=== PATIENT | male | born 1945 | race Caucasian/White ===

== ENCOUNTER 2017-03-28 18:09 | Emergency (ER) | payer OTHER, MEDICARE ==
[~2017-03-28] VITALS: Ht 180.3 cm; Wt 75.0 kg
[~2017-03-28 18:09] MED LIST: ALBUTEROL S2.5 MG/.5 IN; EQ OMEPRAZOLE20 MG PO; FINASTERIDE5 MG PO; LISINOP/HCTZ1 TAB PO; LISINOPRIL10 MG PO; MEDDOSEPAK PO; METFORMIN500 MG PO; TAMSULOSIN0.4 MG PO; TESSALON PER100 MG PO; XANAX0.25 MG PO; ZPAK PO
[2017-03-28 19:41] LABS: HEMATOCRIT 36.1 % (39.0-50.0); HEMOGLOBIN 12.3 g/dl (14.0-18.0); IMMATURE GRANULOCYTES 0.9 % (0.0-1.0); MEAN CELL VOLUME 91.6 fL CALC (80.0-100.0); MEAN CORPUSCULAR HGB 31.2 pG CALC (26.0-32.0); MEAN CORPUSCULAR HGB CONC 34.1 g/L CALC (32.0-36.0); NEUT# 9.26 thou/uL (1.82-7.42); RED BLOOD COUNT 3.94 mill/uL (4.70-6.10); RED CELL DISTRI WIDTH 13.6 % (11.5-15.5)
[2017-03-28 19:55] LABS: ALBUMIN 4.4 g/dL (3.2-5.0); ALKALINE PHOSPHATASE 124 u/l (38-126); ANION GAP 27 (6-22 (CALC)); BILIRUBIN, TOTAL 0.4 mg/dL (0.0-1.4); BUN 15 mg/dL (8-23); BUN/CREATININE RATIO 15 (12-20 (CALC)); CALCIUM 9.2 mg/dL (8.4-10.2); CARBON DIOXIDE 13 mmol/l (22-30); CHLORIDE 96 mmol/l (95-108); ETHYL ALCOHOL 223 mg/dl (0-30); GFR > 60 ML/MIN (>=60 (CALC)); GFR FOR AFR.AMER. > 60 ML/MIN (>=60 (CALC)); GLUCOSE 88 mg/dL (82-115); POTASSIUM 4.4 mmol/l (3.5-5.1); SGOT/AST 57 u/l (19-48); SGPT/ALT 37 u/l (11-66); SODIUM 133 mmol/l (137-146); TOTAL PROTEIN 6.7 g/dL (6.3-8.2)
[2017-03-28 20:07] LABS: ACT PARTIAL THROMBO TIME 27.7 SECONDS (20.0-32.5); PROTHROMBIN TIME 10.7 SECONDS (9.0-12.5)
[2017-03-29 00:01] VITALS: BP 153/78
[2017-03-29 00:04] LABS: URINE BILIRUBIN - DIPSTICK NEGATIVE (NEGATIVE); URINE BLOOD DIPSTICK SMALL (NEGATIVE); URINE COLOR YELLOW; URINE GLUCOSE - DIPSTICK NEGATIVE (NEGATIVE); URINE KETONE 40 mg/dL (NEGATIVE); URINE LEUK ESTERASE NEGATIVE (Negative); URINE NITRITE - DIPSTICK NEGATIVE (Negative); URINE PH 5.5 (4.5-8.0); URINE PROTEIN - DIPSTICK NEGATIVE (NEG-TRACE); URINE UROBILINOGEN - DIPSTICK 0.2 E.U./dL (0.2)
[2017-03-29 00:10] LABS: URINE CLARITY CLEAR
[2017-03-29 00:17] LABS: URINE RBC 0-2 RBC/hpf (0-5)
[2017-03-29 00:18] LABS: URINE WBC 0-2 WBC/hpf (0-5)
== END 2017-03-29 00:01 | DRG 200 ==
LOC: ED 18:09
PROVIDERS: Emergency Medicine
DX: S27.0XXA Traumatic pneumothorax, initial encounter (principal); J90 Pleural effusion, not elsewhere classified; S27.321A Contusion of lung, unilateral, initial encounter; S22.42XA Multiple fractures of ribs, left side, initial encounter for closed fracture; V59.88XA Occupant (driver) (passenger) of pick-up truck or van injured in other specified transport accidents, initial encounter; Y92.414 Local residential or business street as the place of occurrence of the external cause; R00.0 Tachycardia, unspecified; F10.129 Alcohol abuse with intoxication, unspecified; Y90.7 Blood alcohol level of 200-239 mg/100 ml
CPT/HCPCS: Q9967

== ENCOUNTER 2024-04-18 00:08 | Emergency (ER) | payer MEDICARE ==
[~2024-04-18] VITALS: Ht 180.3 cm; Wt 68.0 kg
[2024-04-18] MEDS ORDERED: SODIUM CHLORIDE 0.9% 1,000 ML IV ONE ×2 (00:45→02:40)
[2024-04-18] MEDS ORDERED: IPRATROPIUM-Albuterol 0.5MG-2.5MG/3 ML NEB ONE (00:45)
[2024-04-18 01:00] LABS: BASO% 0.2 % (0-3); HEMATOCRIT 41.7 % (39.0-50.0); HEMOGLOBIN 13.2 g/dl (14.0-18.0); IMMATURE GRANULOCYTES 0.7 % (0.0-5.0); MEAN CELL VOLUME 96.1 fL CALC (80.0-100.0); MEAN CORPUSCULAR HGB 30.4 pG CALC (26.0-32.0); MEAN CORPUSCULAR HGB CONC 31.7 g/dL CAL (32.0-36.0); MONO% 5.6 % (2-13); NEUT# 16.49 thou/uL (1.82-7.42); NEUT% 88.5 % (42-76); RED BLOOD COUNT 4.34 mill/uL (4.70-6.10); RED CELL DISTRI WIDTH 14.4 % (11.5-15.5)
[2024-04-18 01:18] LABS: ALBUMIN 4.1 g/dL (3.2-5.0); CREATININE 1.2 mg/dL (0.7-1.3); TOTAL PROTEIN 7.4 g/dL (6.3-8.2)
[2024-04-18 01:19] LABS: BILIRUBIN, TOTAL 0.6 mg/dL (0.2-1.3)
[2024-04-18] MEDS ORDERED: KETOROLAC TROMETHAMINE 30 MG/ML SDV IV ONE (01:40)
[2024-04-18] MEDS ORDERED: LOPERAMIDE HCL 2 MG CAP PO ONE (01:40)
[2024-04-18] MEDS ORDERED: DOXYCYCLINE HYCLATE 100 MG in SODIUM CHLORIDE 0.9% 100 ML IV ONE (02:40)
[2024-04-18 04:34] LABS: URINE BLOOD DIPSTICK Negative (NEGATIVE); URINE GLUCOSE - DIPSTICK Negative (NEGATIVE); URINE KETONE Trace mg/dL (NEGATIVE); URINE LEUK ESTERASE Negative (NEGATIVE); URINE NITRITE - DIPSTICK Negative (Negative); URINE PROTEIN - DIPSTICK 30 mg/dL (NEG-TRACE); URINE SPECIFIC GRAVITY 1.025; URINE UROBILINOGEN - DIPSTICK 0.2 E.U./dL (0.2)
[2024-04-18 04:35] LABS: URINE COLOR Yellow
[2024-04-18 04:45] LABS: URINE EPITHELIAL CELLS FEW EPI/hpf (0-FEW)
[2024-04-18 04:46] LABS: URINE BACTERIA MODERATE hpf; URINE MUCUS MODERATE hpf (NONE-FEW)
[2024-04-18] MEDS ORDERED: VIBRAMYCIN100 M2 PO (05:44)
[2024-04-18 05:50] VITALS: BP 120/68
== END 2024-04-18 06:00 | disposition home or self-care (01) ==
LOC: ED 00:08
PROVIDERS: Family Medicine
DX: J44.1 Chronic obstructive pulmonary disease with (acute) exacerbation (principal); E86.0 Dehydration; I10 Essential (primary) hypertension; E11.9 Type 2 diabetes mellitus without complications; I25.10 Atherosclerotic heart disease of native coronary artery without angina pectoris; Z86.73 Personal history of transient ischemic attack (TIA), and cerebral infarction without residual deficits; Z79.84 Long term (current) use of oral hypoglycemic drugs; Z87.891 Personal history of nicotine dependence; Z20.822 Contact with and (suspected) exposure to COVID-19